=== PATIENT | female | born 2000 | race Caucasian/White ===

== ENCOUNTER 2021-03-24 21:05 | Emergency (ER) | payer OTHER ==
[2021-03-24] MEDS ORDERED: LEVOTHYROXIN150 MCG PO (21:38)
[2021-03-24] MEDS ORDERED: ADDERALL XR25 MG PO (21:39)
[2021-03-24] MEDS ORDERED: IRON325 M1 PO (21:41)
[2021-03-24] MEDS ORDERED: ZYRTEC10 M5 PO (21:43)
[2021-03-24] MEDS ORDERED: BENADRYL 25MG C25 MG PO (21:43)
[2021-03-24] MEDS ORDERED: BIRTH CONTROL (21:45)
[2021-03-24 21:51] LABS: HEMOGLOBIN 12.3 g/dl (12.0-16.0); IMMATURE GRANULOCYTES 0.6 % (0.0-5.0); MEAN CELL VOLUME 73.3 fL CALC (80.0-100.0); MEAN CORPUSCULAR HGB 22.5 pG CALC (26.0-32.0); MEAN CORPUSCULAR HGB CONC 30.8 g/dL CAL (32.0-36.0); NEUT# 8.75 thou/uL (2.00-7.15); RED BLOOD COUNT 5.46 mill/uL (4.20-5.60)
[2021-03-24 22:44] VITALS: BP 152/89
== END 2021-03-24 22:45 | disposition home or self-care (01) ==
LOC: ED 21:05
PROVIDERS: Family Medicine
DX: B34.9 Viral infection, unspecified (principal); R62.50 Unspecified lack of expected normal physiological development in childhood; Z20.822 Contact with and (suspected) exposure to COVID-19